=== PATIENT | male | born 1960 | race Caucasian/White ===

== ENCOUNTER 2016-12-26 11:23 | Emergency (ER) | payer OTHER ==
[~2016-12-26] VITALS: Ht 175.3 cm; Wt 81.5 kg
[~2016-12-26 11:23] MED LIST: CYCL-36 PO; DICL50 PO
[2016-12-26 11:24] VITALS: BP 167/93; PULSE 71; RESP 18; TEMP 98.2; O2SAT 100
--- NOTE | 2016-12-26 11:52 | PD ---
HPI . Right heel pain Chief Complaint: Pain: Acute or Chronic Time Seen by Provider: 11:47 Travel History International Travel<30 days: No Contact w/Intl Traveler<30days: No Traveled to known affect area: No History of Present Illness HPI Patient presents with the chief complaint of right heel pain. He stepped on a nail through a shoe yesterday. He does not recall the date of his last tetanus shot. In addition, he is complaining of aggravation of his right sciatic nerve. He reports a history of same. He rates the pain 10/10. Pain is exacerbated by walking. PFSH Past Medical History Hx Anticoagulant Therapy: No Arthritis: Yes (lower back) Anxiety: Yes Depression: No Cancer: No Cardiovascular Problems: No Chemotherapy: No Cerebrovascular Accident: No Diabetes: No Diminished Hearing: Yes (HOPI) Endocrine: No Genitourinary: No Headaches: Yes Immune Disorder: No Implanted Vascular Access Dvce: Yes Musculoskeletal: Yes (CHRONIC BACK PAIN) Neurologic: Yes Psychiatric: Yes [facility]) Reproductive: No Respiratory: No Past Surgical History Abdominal Surgery: Yes Body Medical Devices: left hip screws Hysterectomy: No Oral Surgery: Yes (tmj 1976) Tonsillectomy: Yes Other Surgery: Yes Social History Alcohol Use: Yes (RARELY) Tobacco Use: Yes Substance Use: No (denies, hx marijuana weekly) Allergies-Medications (Allergen,Severity, Reaction): Coded Allergies: *MDRO Multi-Drug Resistant Organism (Verified Adverse Reaction, Unknown, ) 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 SKIN: He has a puncture wound on the right heel with some surrounding tenderness. HEAD: Normocephalic/atraumatic. EYES: Pupils are equal. Extraocular movements are intact. NECK: Supple. CARDIOVASCULAR: Regular rate and rhythm. RESPIRATORY: Nonlabored. MUSCULOSKELETAL: Atraumatic. NEUROLOGICAL: Nonfocal. PSYCHIATRIC: Appropriate mood and affect. Data Data Last Documented VS Vital Signs Date Time Temp Pulse Resp B/P (MAP) Pulse Ox O2 Delivery O2 Flow Rate FiO2 12/26/16 11:24 98.2 71 18 167/93 (117) 100 Room Air Orders Orders Lidocaine 1% Inj (50 Ml) (Xylocaine 1% I (12/26/16 12:00) Tetanus/Diphtheria Tox Adult (Tetanus/Di (12/26/16 12:00) MDM Medical Decision Making Medical Screen Exam Complete: Yes Emergency Medical Condition: Yes Differential Diagnosis My differential diagnosis of puncture wound includes but is not limited to simple puncture wound, cellulitis, retained foreign body Narrative Course This patient presents status post a puncture wound to the right heel. It did go through his shoe. Date of his last tetanus shot. His tetanus will be updated. His wound will be explored to rule out retained foreign body. Diagnosis Primary Impression: Puncture wound of plantar aspect of foot Qualified Codes: S91.331A - Puncture wound without foreign body, right foot, initial encounter Scripts No Active Prescriptions or Reported Meds Monet Sinclair MD Dec 26, 2016 11:51
[2016-12-26] MEDS ORDERED: LIDOCAINE HCL 1% 50 ML VIAL INFIL ONE (12:00)
[2016-12-26] MEDS ORDERED: TETANUS/DIPHTHERIA TOXOID ADULT 0.5 ML VIAL IM ONE (12:00)
--- NOTE | 2016-12-26 14:24 | PD ---
Physical Exam Date Seen by Provider: Dec 26, 2016 Time Seen by Provider: 13:00 Narrative 56-year-old male patient presents emergency department for evaluation of right heel pain. Patient stepped on a nail that went through his shoe yesterday. Patient's tetanus was updated of this visit. Patient states that his right- sided sciatica was irritated during this event. Patient denies taking any daily medication. She denies any fever, chills, malaise, chest pain, shortness breath, abdominal pain, vomiting or diarrhea. Data Data Last Documented VS Vital Signs Date Time Temp Pulse Resp B/P (MAP) Pulse Ox O2 Delivery O2 Flow Rate FiO2 12/26/16 11:24 98.2 71 18 167/93 (117) 100 Room Air Orders Orders Lidocaine 1% Inj (50 Ml) (Xylocaine 1% I (12/26/16 12:00) Tetanus/Diphtheria Tox Adult (Tetanus/Di (12/26/16 12:00) Wound Care (12/26/16 14:24) Ed Discharge Order (12/26/16 14:24) Ketorolac Inj (Toradol Inj) (12/26/16 14:30) [facility] Supervised Visit with PRAB[facility]: Yes Differential Diagnosis Differential diagnosis includes but are not limited to puncture wound, cellulitis, sciatica Narrative Course 56-year-old male patient presents emergency department for evaluation of puncture wound to his right heel that occurred yesterday when he stepped on a nail. Tetanus shot was updated. Lidocaine 1% was injected around the puncture wound to explore for foreign bodies. Small foreign body removed.Wound care was performed. Right foot is neurovascularly intact. Patient is ambulatory without a limp. Patient was given an IM injection of Toradol for sciatic pain and discharged home with instructions to return the emergency Department with any worsening condition or signs or symptoms of infection but otherwise follow up with primary care. Patient requested a work note. Work note given. Diagnosis Primary Impression: Puncture wound of plantar aspect of foot Qualified Codes: S91.331A - Puncture wound without foreign body, right foot, initial encounter Referrals: Primary Care Physician Patient Instructions: Acute Wound Care (GEN), General Instructions, Puncture Wound (GEN) Departure Forms: Tests/Procedures, Work Release Enter return to work date: Dec 27, 2016 Additional Instruction: Please return to emergency department if your symptoms return or worsen. Follow up with your primary care provider. Daily wound care. May soak right foot in warm water with Epsom salt to promote healing. Med/Other Pt SpecificInfo: Wound Care Scripts No Active Prescriptions or Reported Meds Disposition: 01 DISCHARGE HOME Condition: Stable Thi Farmer Dec 26, 2016 14:24
[2016-12-26] MEDS ORDERED: KETOROLAC TROMETHAMINE 60 MG/2 ML (IM) VIAL IM ONE (14:30)
== END 2016-12-26 14:54 | disposition home or self-care (01) ==
LOC: NEPD 11:23
DX: S91.331A Puncture wound without foreign body, right foot, initial encounter (principal); M54.31 Sciatica, right side; M19.90 Unspecified osteoarthritis, unspecified site; Y93.01 Activity, walking, marching and hiking; W45.0XXA Nail entering through skin, initial encounter; Z72.0 Tobacco use; Z23 Encounter for immunization
CPT/HCPCS: 90471; 90714